=== PATIENT | male | born 1975 | race Caucasian/White ===

== ENCOUNTER 2024-01-14 20:01 | Emergency (ER) | payer BC, SELFPAY ==
--- NOTE | 2024-01-15 00:02 | ED.GENMED ---
History of Present Illness
<CARRILLO Gilman - Last Filed: 01/15/24 00:56>
General
Chief Complaint: Eye Problems
Source: patient and significant other
Exam Limitations: none
Time Seen by Provider: 01/14/24 23:57
History of Present Illness
History of Present Illness:
Patient is a 48yo M w/ PMH of HTN who presents to the ED after injury to R eye. He was working on siding when debris few into his eye. He tried flushed eye w/ water and saline. Saline burned. Believes daughter picked out 1 or 2 small pieces of wood
but still feels foreign body sensation. Denies pain or blurry vision but feels something is in eye. Feels FB in upper lid near lateral crease. He does not remember when last tdap. Does not wear contacts.
Review of Systems
<CARRILLO Gilman - Last Filed: 01/15/24 00:56>
Review of Systems
Constitutional: Denies fever, fatigue or chills
EENT: Reports tearing; Denies sore throat or runny nose
Respiratory: Denies cough or trouble breathing
Cardiac: Denies chest pain or palpitations
ABD/GI: Denies abdominal pain, nausea, vomiting, diarrhea or constipated
Musculoskeletal: Denies joint pain or muscle pain
Neurological: Denies dizzy or headache
Phy Exam
<CARRILLO Gilman - Last Filed: 01/15/24 00:56>
General Physical Exam
General Presentation: moderate distress
General age: appears stated age
General Skin: warm and dry
General Habitus: normal
General Mental: alert
Eye Exam
Conjunctival Changes: right: chemosis, purulent discharge and local crusting
Cardiovascular Exam
Cardiovascular Exam: regular rate/rhythm, no edema, no gallop and no murmur
Pulmonary Exam
Pulmonary Exam: lungs clear, no respiratory distress, no rales, no crackles, no rhonchi and no wheezing
Neurological Exam
Neurological Exam: alert, oriented x3, no motor deficits and no sensory deficits
Course
<ST MukulPA - Last Filed: 01/15/24 00:56>
Orders/Labs/Results
Orders:
Orders
01/15/24 00:19
Tetanus/Diphth/Acelpertussis [Adacel] 0.5 ml IM .ONCE ONE
01/15/24 00:27
Gentamicin [Genoptic 0.3% Eye Drops] See Dose Instructions OPHTH NOW STA
01/15/24 00:45
Tetracaine HCl [Tetracaine 0.5% Ophthalmic Solution] 1 drop .ROUTE .[facility]
Vital Signs
Initial and Last Documented VS:
Initial Vital Signs
Temp Pulse Resp BP Pulse Ox
98.3 F 84 20 155/100 99
01/14/24 20:12 01/14/24 20:12 01/14/24 20:12 01/14/24 20:12 01/14/24 20:12
Last Documented Vital Signs
Temp Pulse Resp BP Pulse Ox
98.3 F 77 20 144/99 99
01/14/24 20:12 01/15/24 00:41 01/15/24 00:41 01/15/24 00:41 01/14/24 20:12
<Lidia Hamilton DO - Last Filed: 01/15/24 01:02>
Orders/Labs/Results
Orders:
Orders
01/15/24 00:19
Tetanus/Diphth/Acelpertussis [Adacel] 0.5 ml IM .ONCE ONE
01/15/24 00:27
Gentamicin [Genoptic 0.3% Eye Drops] See Dose Instructions OPHTH NOW STA
01/15/24 00:45
Tetracaine HCl [Tetracaine 0.5% Ophthalmic Solution] 1 drop .ROUTE .[facility] ONE
Vital Signs
Initial and Last Documented VS:
Initial Vital Signs
Temp Pulse Resp BP Pulse Ox
98.3 F 84 20 155/100 99
01/14/24 20:12 01/14/24 20:12 01/14/24 20:12 01/14/24 20:12 01/14/24 20:12
Last Documented Vital Signs
Temp Pulse Resp BP Pulse Ox
98.3 F 77 20 144/99 99
01/14/24 20:12 01/15/24 00:41 01/15/24 00:41 01/15/24 00:41 01/14/24 20:12
<CARRILLO Gilman - Last Filed: 01/15/24 00:56>
MDM/Problems Addressed
Differential Diagnosis Includes:
FB, corneal abrasion, corneal ulcer
<CARRILLO Gilman - Last Filed: 01/15/24 00:56>
*Critical Care Note
Total Time (30-74mins, 75-104mins- exclusive of procedures): Not Applicable
ED Attending Note
<CARRILLO Gilman - Last Filed: 01/15/24 00:56>
-
Portions of this chart may have been created with voice recognition software.� Occasional wrong word or��sound alike� substitutions may have occurred due to the inherent limitations of voice recognition software.
<Lidia Hamilton DO - Last Filed: 01/15/24 01:02>
ED Attending Note
Patient seen and examined by attending physician: Yes
I performed the substantive portion of visit, reviewed & personally made and approve the management plan that is documented in note by myself or HERNESTO.: Yes
ED Attending Note:
This is a 48-year-old gentleman with history of hypertension who presents with foreign body sensation right eye after he felt that something flew into his right eye while he was pulling siding off of his house. Injury occurred this afternoon and he
continues with some foreign body sensation of right eye, lateral aspect despite copious irrigation at home. No visual difficulty, no headache.
He does not wear corrective lenses.
Unsure of his last tetanus booster.
GENERAL: 48-year-old gentleman appears his stated age, appears mildly uncomfortable, difficulty keeping his right eye open initially. Complete relief of right eye discomfort after tetracaine instilled.
EYE: pupils equal and reactive. Extraocular muscles intact. Visual acuity intact. Right eye examined with fluorescein stain and Glover lamp. There is mild to moderate conjunctival and scleral injection right lateral eye. No evidence of corneal
abrasion. Cornea is clear. Anterior chamber is clear. No foreign body visualized. No conjunctival nor scleral laceration. No anicteric
NECK: Supple, nontender, no meningismus, no significant adenopathy.
ENT: oral mucosa is moist.
LUNGS: no acute respiratory distress
ABDOMEN: Nontender.
NEUROLOGICAL: Alert and oriented x3, no focal neuro deficits. Gait is collado and steady.
SKIN: Warm and dry, normal color, skin intact. No rash.
PSYCH: Normal and appropriate interaction.
Exam remarkable for moderate scleral irritation right lateral eye but no evidence of corneal abrasion nor corneal nor eye foreign body.
Due to moderate scleral irritation concern for focal abrasion thus will initiate a course of gentamicin ophthalmic drops for infection prevention.
Will update Tdap.
Patient has been provided small bottle of tetracaine to use every 3 hours as needed for pain x 24 hours then discard.
Prompt follow-up with PCP for recheck.
Discharge Plan
Departure
Patient Disposition: Home (Routine Discharge)
Date of Disposition: 01/15/24
Time of Disposition: 00:28
Patient with high blood pressure during this ER visit?: No
Condition: Good
Discharge Problem:
Abrasion of conjunctiva, right
Instructions: Corneal Abrasion (DC), How to Use Eye Drops, Tdap vaccine
Prescriptions:
New
gentamicin 0.3 % drops
1 drp ophthalmic (eye) QID Qty: 5 0RF
Referrals:
Nakul Chappell MD [Family Provider] - Call in 1-3 days for appt
Interventions
Interventions:
*Risk Screen - Suicide Last Done: 01/14/24 20:12
*General Assessment Last Done: 01/14/24 20:12
*Neglect/Abuse Screening Last Done: 01/14/24 20:12
*Nursing Disposition Last Done: 01/15/24 00:41
Discharge Date and Time
Discharge Date/Time: 01/15/24 00:42
Print Language: FRISIAN
[2024-01-15] MEDS: ADACEL 0.5 ML IM (00:33)
[2024-01-15] MEDS: GENOPTIC 0.3% EYE DROPS 1 DROP OPHTH (00:33)
== END 2024-01-15 00:42 | disposition home or self-care (01) ==
LOC: EMR 20:01
PROVIDERS: EMERGENCY PHYSICIAN Emergency Medicine; FAMILY PHYSICIAN Family Medicine
DX: S05.01XA Injury of conjunctiva and corneal abrasion without foreign body, right eye, initial encounter (principal); W44.8XXA Other foreign body entering into or through a natural orifice, initial encounter; Y93.H3 Activity, building and construction; Y92.009 Unspecified place in unspecified non-institutional (private) residence as the place of occurrence of the external cause; Z23 Encounter for immunization; I10 Essential (primary) hypertension
CPT/HCPCS: 99283; 90471; 90715